=== PATIENT | male | born 1960 | race Caucasian/White ===

== ENCOUNTER 2016-10-19 07:21 | Day surgery (SDC) | payer BC ==
[~2016-10-19] VITALS: Ht 185.4 cm; Wt 95.8 kg
[2016-10-19] VITALS (9 sets, daily range): BP systolic 89–133; BP diastolic 50–78; PULSE 45–63; TEMP 97.3
[2016-10-19] MEDS ORDERED: PROTONIX 40MG T40 MG PO (07:37)
[2016-10-19] MEDS ORDERED: APRISO0.375 GM PO (07:38)
[2016-10-19] MEDS ORDERED: LOPRESSOR 225 MG/TAB PO (07:39)
[2016-10-19] MEDS ORDERED: NORCO 325 MG-7.1 TAB PO (14:04)
== END 2016-10-19 15:35 | disposition home or self-care (01) ==
LOC: SDCO 07:21
DX: K40.90 Unilateral inguinal hernia, without obstruction or gangrene, not specified as recurrent (principal); I10 Essential (primary) hypertension; E78.5 Hyperlipidemia, unspecified; F17.210 Nicotine dependence, cigarettes, uncomplicated
CPT/HCPCS: A4315; C1781; E0710; J0690; J1100; J1885; J2270; J2405; J2704; J2710; J2765; J3010; J7120

== ENCOUNTER 2017-06-19 17:40 | Emergency (ER) | payer BC ==
[~2017-06-19] VITALS: Ht 185.4 cm; Wt 95.5 kg
[~2017-06-19 17:40] MED LIST: APRISO0.375 GM PO; LOPRESSOR 225 MG/TAB PO; NORCO 325 MG-7.1 TAB PO; PROTONIX 40MG T40 MG PO
[2017-06-19 17:42] VITALS: BP 172/90; PULSE 85; TEMP 98.1
[2017-06-19 18:12] LABS: COLLECTION METHOD CLEAN CATCH
[2017-06-19 18:19] LABS: PROTHROMBIN TIME 11.2 SECONDS (9.7-12.8)
[2017-06-19 18:20] LABS: MUCOUS Present /lpf; PH 6 (5-8); SQUAMOUS EPITHELIAL None Seen /hpf; URINE APPEARANCE Clear; URINE BACTERIA None Seen /hpf; URINE BILIRUBIN Negative (NEGATIVE); URINE BLOOD 2+ (NEGATIVE); URINE COLOR Yellow; URINE GLUCOSE Negative (NEGATIVE); URINE KETONE Negative (NEGATIVE); URINE LEUKOCYTE ESTERASE Negative (NEGATIVE); URINE PROTEIN(semi-quant) Negative (NEGATIVE); URINE UROBILINOGEN Negative (NEGATIVE); URINE WBC 0-2 /hpf
[2017-06-19 18:22] LABS: BASO % 0.4 % (0.0-2.0); EOS # 0.1 (0.0-0.7); EOS % 1.1 % (0-4.0); GRAN # 6.1 (1.4-6.5); GRAN % 75.1 % (42.2-75.2); HEMOGLOBIN 14.8 g/dl (13.5-18.0); LYMPH # 1.3 (1.2-3.4); LYMPH % 16.2 % (20.0-51.0); MEAN CELL VOLUME 85 fl (80.0-100.0); MEAN CORPUSCULAR HEMOGLOBIN 30 pg (27.0-31.0); MEAN CORPUSCULAR HGB CONC 35 g/dl (33.0-37.0); MONO # 0.5 (0.1-0.6); MONO % 6.7 % (1.7-9.3); RED BLOOD COUNT 4.94 M/mm3 (4.20-5.60); WHITE BLOOD COUNT 8.1 K/mm3 (4.8-10.8)
[2017-06-19 18:32] LABS: ADJUSTED CALCIUM 8.9 mg/dL (8.4-10.2); ALBUMIN 5.3 gm/dL (3.5-5.0); BILIRUBIN,TOTAL 0.8 mg/dL (0.0-1.0); CALCIUM 9.9 mg/dL (8.4-10.2); CREATININE, serum 0.97 mg/dL (0.66-1.25); POTASSIUM 3.9 mmol/L (3.4-5.0); TOTAL PROTEIN 8.3 gm/dL (6.4-8.2)
[2017-06-19 18:37] LABS: PLATELET COUNT 0 K/mm3 (130-400)
[2017-06-19] MEDS ORDERED: FLOMAX 0.40.4 MG/CAP PO (19:55)
[2017-06-19] MEDS ORDERED: ZANTAC 150MG T150 MG PO (19:55)
== END 2017-06-19 20:28 | disposition short-term general hospital (02) ==
LOC: COL.ER 17:40
PROVIDERS: Emergency Medicine
DX: R23.3 Spontaneous ecchymoses (principal); H11.31 Conjunctival hemorrhage, right eye; K51.90 Ulcerative colitis, unspecified, without complications
CPT/HCPCS: J2930

== ENCOUNTER 2017-09-01 10:38 | Emergency (ER) | payer BC ==
[~2017-09-01] VITALS: Ht 185.4 cm; Wt 95.5 kg
[~2017-09-01 10:38] MED LIST changes: +FLOMAX 0.40.4 MG/CAP PO; +ZANTAC 150MG T150 MG PO
[2017-09-01 10:44] VITALS: TEMP 97.6
[2017-09-01 11:45] LABS: BASO % 0.4 % (0.0-2.0); EOS % 0.5 % (0-4.0); GRAN # 3.5 (1.4-6.5); GRAN % 62.2 % (42.2-75.2); HEMATOCRIT 43.4 % (42.0-52.0); HEMOGLOBIN 15.1 g/dl (13.5-18.0); LYMPH # 1.6 (1.2-3.4); LYMPH % 28.3 % (20.0-51.0); MEAN CELL VOLUME 86 fl (80.0-100.0); MEAN CORPUSCULAR HEMOGLOBIN 30 pg (27.0-31.0); MEAN CORPUSCULAR HGB CONC 35 g/dl (33.0-37.0); MEAN PLATELET VOLUME 9.2 fl (7.4-10.4); MONO # 0.5 (0.1-0.6); MONO % 8.2 % (1.7-9.3); PLATELET COUNT 136 K/mm3 (130-400); RED BLOOD COUNT 5.03 M/mm3 (4.20-5.60); REDCELL DISTRIBUTION WIDTH-CV 13.3 % (11.5-14.5)
[2017-09-01 11:53] LABS: ALANINE AMINOTRANSFERASE 39 U/L (21-72); ALBUMIN 4.8 gm/dL (3.5-5.0); ALKALINE PHOSPHATASE 69 U/L (50-136); ANION GAP 10 mmol/L (7-16); AST,SGOT 30 U/L (15-37); BILIRUBIN,TOTAL 0.5 mg/dL (0.0-1.0); BLOOD UREA NITROGEN 17 mg/dL (9-20); CALCIUM 9.7 mg/dL (8.4-10.2); CARBON DIOXIDE 27 mmol/L (22-30); CHLORIDE 105 mmol/L (98-107); CREATININE, serum 0.87 mg/dL (0.66-1.25); GLUCOSE 102 mg/dL (74-106); POTASSIUM 3.9 mmol/L (3.4-5.0); SODIUM 142 mmol/L (137-145); TOTAL PROTEIN 7.9 gm/dL (6.4-8.2)
[2017-09-01 12:05] LABS: TROPONIN-I < 0.012 ng/mL (0.000-0.034)
[2017-09-01 12:16] LABS: PROTHROMBIN TIME 11.7 SECONDS (9.7-12.8)
[2017-09-01 12:23] LABS: PARTIAL THROMBOPLASTIN TIME 27.6 SECONDS (26.0-37.0)
[2017-09-01 14:44] VITALS: BP 141/105; PULSE 74
== END 2017-09-01 14:55 | disposition left against medical advice (07) ==
LOC: COL.ER 10:38
PROVIDERS: Emergency Medicine
DX: R55 Syncope and collapse (principal); K21.9 Gastro-esophageal reflux disease without esophagitis; Z87.891 Personal history of nicotine dependence
CPT/HCPCS: Q9967

== ENCOUNTER → 2018-08-07 | Outpatient (CLI) | payer BC | LOC: COL.RAD 07:11 | DX: R91.1 Solitary pulmonary nodule (principal); R10.32 Left lower quadrant pain; R10.11 Right upper quadrant pain | CPT/HCPCS: Q9967 ==

== ENCOUNTER 2018-10-11 04:32 | Emergency (ER) | payer BC ==
[~2018-10-11] VITALS: Ht 185.4 cm; Wt 95.0 kg
[2018-10-11 04:39] VITALS: BP 134/95; PULSE 71; TEMP 98.5
== END 2018-10-11 04:55 | disposition home or self-care (01) ==
LOC: COL.ER 04:32
DX: I10 Essential (primary) hypertension (principal)

== ENCOUNTER 2019-05-16 09:13 | Emergency (ER) | payer BC ==
[~2019-05-16] VITALS: Ht 185.4 cm; Wt 89.5 kg
[2019-05-16 09:21] VITALS: BP 155/94; TEMP 97.8
[2019-05-16] MEDS ORDERED: LOTREL 5/10MG C1 CAP PO (09:41)
[2019-05-16 10:10] VITALS: PULSE 76
== END 2019-05-16 10:11 | disposition home or self-care (01) ==
LOC: COL.ER 09:13
DX: N48.89 Other specified disorders of penis (principal); K21.9 Gastro-esophageal reflux disease without esophagitis; I10 Essential (primary) hypertension; Z88.2 Allergy status to sulfonamides; Z87.891 Personal history of nicotine dependence
CPT/HCPCS: J1040

== ENCOUNTER 2019-08-13 13:45 | Outpatient (RCR) | payer OTHER ==
[~2019-08-13 13:45] MED LIST changes: +LOTREL 5/10MG C1 CAP PO
== END 2019-08-21 10:17 | disposition still patient (30) ==
LOC: WSOH 13:45
DX: M25.561 Pain in right knee (principal); I10 Essential (primary) hypertension; K21.9 Gastro-esophageal reflux disease without esophagitis; K52.9 Noninfective gastroenteritis and colitis, unspecified; Z87.891 Personal history of nicotine dependence; Y99.0 Civilian activity done for income or pay